=== PATIENT | male | born 1980 | race African-American/Black ===

== ENCOUNTER 2017-10-30 05:46 | Inpatient (IN) | payer OTHER ==
[2017-10-30] MEDS ORDERED: QUEtiapine TAB* 100 MG PO ONE (06:14)
[2017-10-30 06:32] LABS: ABS Basophils 0 10^3/ul (0-0.2); ABS Eosinophils 0.1 10^3/ul (0-0.6); ABS Lymphocytes 2.2 10^3/ul (1.0-4.8); ABS Monocytes 0.5 10^3/ul (0-0.8); ABS Neutrophils 2.8 10^3/ul (1.5-7.7); ABS Nucleated RBC 0 10^3/ul; Hematocrit 37 % (42-52); Hemoglobin 12.7 g/dl (14.0-18.0); Lymphocyte % 39.3 % (25-47); Mean Corpuscular HGB Conc 34 g/dl (31-36); Mean Corpuscular Hemoglobin 31 pg (27-31); Mean Corpuscular Volume 91 fL (80-94); Mean Platelet Volume 7.3 um3 (7.4-10.4); Nucleated Red Blood Cells % 0; Platelet Count 237 10^3/ul (150-450); Red Blood Count 4.09 10^6/ul (4.0-5.4); Red Cell Distribution Width 13 % (10.5-15); White Blood Count 5.6 10^3/ul (3.5-10.8)
[2017-10-30 06:50] LABS: EGFR Non-African American 75.4 (>60)
[2017-10-30] MEDS: Citalopram TAB* 40 MG PO SCH (07:51)
[2017-10-30] MEDS ORDERED: Nicotine GUM* 2 MG PO PRN (13:49)
[2017-10-30] MEDS ORDERED: Acetaminophen TAB* 325 MG PO PRN (13:49)
[2017-10-30] MEDS ORDERED: Nicotine Inhaler* 10 MG AMP INH PRN (13:49)
[2017-10-30] MEDS ORDERED: Al Hydrox/Mg Hydrox/Simet LIQ* 30 ML UDC PO PRN (13:49)
[2017-10-30] MEDS ORDERED: Mouth Piece, Nicotine* 1 EACH CARTRIDGE INH ONE (15:00)
[2017-10-30] MEDS: QUEtiapine TAB* 300 MG PO SCH (21:18)
[2017-10-30] MEDS: QUEtiapine TAB* 100 MG PO SCH (21:18)
[2017-10-31] MEDS: Citalopram TAB* 40 MG PO SCH ×2 (01:40→09:14)
[2017-10-31] MEDS: QUEtiapine TAB* 300 MG PO SCH (20:54)
[2017-10-31] MEDS: QUEtiapine TAB* 100 MG PO SCH (20:54)
--- NOTE | 2017-11-01 02:41 | HP ---
HISTORY AND PHYSICAL: DATE OF ADMISSION: 10/30/17 PROVIDER: Damaris Ortiz NP in Psychiatry. SUPERVISING PHYSICIAN: Dontrell Leone MD * (DICTATED BY DAMARIS ORTIZ NP ) JUSTIFICATION FOR ADMISSION: The patient is in need of 24-hour supervision and care secondary to suicidal ideation. CHIEF COMPLAINT: "I was not sleeping or eating and I am depressed." HISTORY OF PRESENT ILLNESS: The patient is a 37-year-old male who is partnered to a woman who has his child. He has a history of depression and drug abuse including cocaine and alcohol who arrives by walking in voluntarily and is here on a voluntary admission after having creeping suicidal ideation over 2 to 3 weeks. Terell says he is depressed. He has been in the hospital for an overnight so far and he states he is physically better now that he is back on his medications, which include Lexapro 20 mg and Seroquel at this point 400 mg. He says he was suicidal. He was off his meds for a while and all his past history came back including all of his depressions and unhappiness. He had a plan to overdose. He is thinking about going to inpatient rehab. He has a long history of depression, which started around age 19 and multiple suicide attempts in the past. He has an outpatient psychiatrist in [place] with the [facility], but he ran out of his medications few weeks ago. He reports having little sleep and poor appetite after running out of the medication and he continued using cocaine daily during that period. In the psychiatric unit so far, he reports better sleep and appetite after initiation of medications, but he still feels depressed and suicidal. He admits thoughts of hurting himself and states that "they are always there." He is hoping to be transferred to an inpatient rehab center for continuing care. He refused further questions due to a headache. He was sleeping less during his use of cocaine and is now sleeping more. He is distressed by his depression. He states that it has been historically ongoing. He is lying still in bed. He has not particularly gotten out of bed. He did get up to take his shower. It should be noted that these symptoms are in the setting of withdrawal from cocaine. He has declined to take a urine drug screen. PAST PSYCHIATRIC HISTORY: He has had several previous admissions in other locations that he declines to mention. He was also in at least one inpatient drug rehab center for a month. He was most recently in [place] where he was treated by taking Lexapro 20 mg and Seroquel 800 m mg in the morning, 200 mg in the afternoon and 400 mg at bedtime. He does not describe any other past psychiatric meds and is not open to talking about where he has been treated in the past. PAST MEDICAL HISTORY: He declined to comment on. FAMILY HISTORY: His mom had depression. SUBSTANCE ABUSE: He is using alcohol and cocaine. Again, he has declined a urine drug screen, so it is unclear exactly what he has been using. He states that he was in rehab before, but he was not focussed on getting well and he was not there for the right reasons. He states he was there for 28 days. In the multiple hospitalization department, he states they are for the "same reasons", but declines to go into any details. SOCIAL HISTORY: He had a sister, who has . She lived in [place]. He has a mom, who is living and is in [place]. Dad is in [place]. Their relationship is fine, he says, but he does not contact them. He left home at age 20 and has since lived in "lots of places," but he does not want to go into details. When pressed, he says that he has lived "all over." REVIEW OF SYSTEMS: The patient reports feeling fatigued. He denies shortness of breath, heat or cold intolerance, chest pain, or abdominal pain. He denies neurological symptoms. He denies fevers or changes in weight. PHYSICAL EXAMINATION VITAL SIGNS: His vital signs are within normal limits. For further exam and data, please see the emergency department records. MENTAL STATUS EXAM: This is an -Malagasy appearing possibly older than his stated age, although it is difficult to determine due to the fact that he will not get up out of bed. He remains lying down. He has short hair and appears to be reasonably well built. He is calm and superficially cooperative. His speech is in normal rate, tone, and volume although he is a bit terse. He appears to be dysthymic. His affect is constricted. His rate of thought seems to be normal. Thought content is clear. He is not homicidal at this time. He states he is having suicidal ideations and that those are always there. He is not having auditory or visual hallucinations. His insight into whether he has a mental illness is good. His judgment regarding how to get it treated is not good and will be considered fair. He is alert and oriented x3. He is a bit sleepy. His intelligence appears to be normal given his background and his vocabulary. LABORATORY DATA: He does have a reduced red blood cell count. We are going to screen for sickle cell. We have data from his A1c, which was approximately 4.6. His lipids were also within normal limits. DIAGNOSES: [place] I: Major depressive disorder, cocaine withdrawal. [place] II: Cluster B traits. IMPRESSION: This is a 37-year-old -Malagasy man, who is fairly clearly in a state of cocaine withdrawal, which is bringing on suicidal ideation as well as increased hunger and sleepiness. He in this setting is having increased suicidal thoughts and is considering going to an inpatient drug rehab. PLAN: The patient is admitted to the adult behavioral health unit and placed on 15- minute checks for his own safety. The patient is encouraged to participate in supportive milieu, individual, and group therapy. Estimated length of stay is 3 to 5 days. We will titrate medications to efficacy and monitor for mood and thought content. Discharge planning will include outpatient providers for psychiatry and drug treatment. DAMARIS ORTIZ, REAL [id number]/[facility]PS #: [id number] PITA
[2017-11-01 08:02] VITALS: BP 104/71
[2017-11-01] MEDS: Citalopram TAB* 40 MG PO SCH (11:00)
--- NOTE | 2017-11-02 13:45 | DS ---
DISCHARGE SUMMARY: DATE OF ADMISSION: 10/30/17 DATE OF DISCHARGE: 11/01/17 PROVIDER: Damaris Ortiz NP in Psychiatry. SUPERVISING PHYSICIAN: Dontrell Leone MD.* (DICTATED BY DAMARIS ORTIZ NP ) DIAGNOSIS: [place] I: Cocaine-induced depressive disorder. CONDITION AT THE TIME OF DISCHARGE: Psychiatrically cleared, stable. Did not participate in groups, was not social with peers, was agreeable to discharge. MENTAL STATUS EXAMINATION: At the time of discharge; Terell was calm, cooperative, made fair eye contact, alert and oriented x3. His grooming was good. His speech was normal paced. Thought processes are logical. He is not psychotic. He is not delusional. He denies auditory hallucinations, visual hallucinations, suicidal ideation and homicidal ideation. His insight and judgement are fair to good. He states he is willing to follow up and is urged to seek alcohol and drugs treatment. DISCHARGE INSTRUCTIONS TO THE PATIENT: A. Medications: Terell came in on Lexapro 20 mg and Seroquel a total of 800 mg. He was discharged on 20 mg of Lexapro and 400 mg of Seroquel. B. Diet: Regular. C. Activity: As tolerated. He is a smoker. We have referred him to the [facility] Smoker's Quit Line at [phone]. There are no studies pending at the time of discharge, all are available in the chart. FOLLOWUP CARE: Terell has been referred to the [facility] [place] and has an appointment there next week. SUBSTANCE ABUSE FOLLOWUP: As I said, he is referred to [facility] [place] for substance abuse treatment. There they can make the determination if he needs inpatient drug and alcohol rehab. HOSPITAL COURSE: The patient is a 37-year-old male who is partner to a woman who has his child. He has a history of depression and drug abuse including cocaine and alcohol who arrives by walking in voluntarily and is here on a voluntary admission after having creeping suicidal ideation over 2 to 3 weeks. Terell says he is depressed. He has been in the hospital for an overnight so far and states he is physically better now that he is back on his medications, which include Lexapro 20 mg and Seroquel at this point 400 mg. He says he was suicidal. He was off his meds for a while and all his past history came back including all his depressions and unhappiness. He had a plan to overdose. He was thinking about going to inpatient rehab. He has a long history of depression, which started around age 19 and multiple suicide attempts in the past. He has an outpatient psychiatrist in [place] with the [facility], but he ran out of medications a few weeks ago. He reports having little sleep and poor appetite as he continues using cocaine daily during that period. In the psychiatric unit, so far, he reports better sleep and appetite after initiation of medications but he still feels depressed and suicidal. He admits thoughts of hurting himself and states that they are always there. He is hoping to be transferred to an inpatient rehab center for continuing care. He refused further questions due to a head-ache. He was sleeping less during his use of cocaine and is now sleeping more. He was distressed by his depression. He states that it has historically been ongoing. He is lying still in bed. He has not particularly gotten out of bed. He did get up to take his shower. It should be noted that these symptoms are in the setting of withdrawal from cocaine. He has declined to take a urine screen. PSYCHIATRIC TREATMENT RENDERED: The patient was admitted to the adult behavioral unit and placed on 15-minute checks for safety. Terell was very relaxed on the unit spending most of the time in bed when he was not eating. The only med change that we made was to reduce his Seroquel from 800 to 400. He stated that he had bipolar disorder, but he was unable to interact with me for long enough to describe his symptoms without saying he was tired or he had a headache. He is on Seroquel. His HA1c is about 4.6. His lipids are within normal limits. There were no consults entered. He is improved in that he is no longer suicidal. He is referred out to outpatient rehab where they can determine whether he needs inpatient rehab and he was agreeable to that plan. DAMARIS ORTIZ, REAL [id number]/[facility] #: [id number] PITA
--- NOTE | 2017-11-10 14:39 | ED ---
Nimesh López Natalie, scribed for Nader Santana MD on 10/30/17 at 0622 . Psychiatric Complaint - HPI Summary HPI Summary: The patient is a 37 y/o M presenting to the ED c/o SI with gradual onset after not being on medications for a few weeks. He usually takes 800mg Seroquel and 20mg Lexapro, but ran out and thought he could do without them. He states that his depression is back and he's been thinking about suicide, "can't stop thinking about pills" in relation to a suicidal plan. Pt additionally c/o sleep loss. Pt denies CP, SOB, and abd pain. He has been previously hospitalized with the most recent time approximately two years ago. He drinks a few times a week and uses marijuana and cocaine, which were both used a few weeks ago, and is not currently under the influence of any drugs or alcohol. FHx of depression in mother and suicide in sister. - History Of Current Complaint Chief Complaint: EDMentalHealth Time Seen by Provider: 10/30/17 06:07 Hx Obtained From: Patient Onset/Duration: Gradual Onset, Lasting Days, Still Present Timing: Constant Severity Initially: Moderate Severity Currently: Moderate Character: Depressed Aggravating Factor(s): Medication Non-compliance Alleviating Factor(s): Nothing Associated Signs And Symptoms: Positive: Sleep Disturbance Related History: Positive For: Prior Psychiatric Issues - depression Has Suicidal: Reports: Thoughts, With A Plan - Allergies/Home Medications Allergies/Adverse Reactions: Allergies Allergy/AdvReac Type Severity Reaction Status Date / Time No Known Allergies Allergy Verified 10/30/17 05:51 Home Medications: Home Medications Escitalopram Oxalate [Lexapro 20 mg] 20 mg PO DAILY 10/30/17 [History Confirmed 10/30/17] Quetiapine Fumarate [Seroquel 400 MG] 800 mg PO 10/30/17 [History] PMH/Surg Hx/FS Hx/Imm Hx EENT History: Denies: Hx Deafness Psychiatric History: Reports: Hx Depression Infectious Disease History: No Infectious Disease History: Denies: Traveled Outside the [place] in Last 30 Days - Family History Known Family History: Positive: Other - depression in mother, suicide in sister - Social History Alcohol Use: Weekly Substance Use Type: Reports: Cocaine, Marijuana Substance Use Comment - Amount & Last Used: 2 weeks ago marijuana, 3 days ago cocaine Smoking Status (MU): Current Every Day Smoker Review of Systems Negative: Shortness Of Breath, Cough Negative: Abdominal Pain Neurological: Other - sleep loss Positive: Depressed, Other - SI All Other Systems Reviewed And Are Negative: Yes Physical Exam - Summary Physical Exam Summary: Appearance: Well appearing, no pain distress Skin: warm, dry, reflects adequate perfusion Head/face: normal Eyes: EOMI, ALMA ENT: normal Neck: supple, non-tender Respiratory: CTA, breath sounds present Cardiovascular: RRR, pulses symmetrical Abdomen: non-tender, soft Bowel Sounds: present Musculoskeletal: normal, strength/ROM intact Neuro: normal, sensory motor intact, A&Ox3 Psych: states suicidal thoughts with possible plan of using pills Triage Information Reviewed: Yes Vital Signs On Initial Exam: Initial Vitals Temp Pulse Resp BP Pulse Ox 97.7 F 85 16 136/80 97 10/30/17 05:48 10/30/17 05:48 10/30/17 05:48 10/30/17 05:48 10/30/17 05:48 Vital Signs Reviewed: Yes Diagnostics - Vital Signs Vital Signs Temp Pulse Resp BP Pulse Ox 10/30/17 05:48 97.7 F 85 16 136/80 97 - Laboratory Lab Statement: Any lab studies that have been ordered have been reviewed, and results considered in the medical decision making process. Course/Dx - Differential Dx/Clinical Impression Provider Diagnosis: Major depression, recurrent, Non compliance w medication regimen Discharge - Sign-Out/Discharge Documenting (check all that apply): Sign-Out Patient Signing out patient TO: Keiry Castillo - The pt will be a sign-out to Dr. Castillo at shift change pending MHE. - Discharge Plan Referrals: Brenna Stephenson MD [Primary Care Provider] - The documentation as recorded by the Nimesh hartman Natalie accurately reflects the service I personally performed and the decisions made by fl, Nader Santana MD.
--- NOTE | 2017-11-11 13:46 | UC ---
- Progress Note Progress Note: Pt received in sign out from Dr. Santana at 7am pt awaiting lorraine No concerned during my shift Pt signed out Dr. Anaya 10am awaiting mental health dispo - Consult/PCP Time Called: 06:55 Course/Dx - Diagnoses Provider Diagnoses: Major depression, recurrent, Non compliance w medication regimen Discharge - Sign-Out/Discharge Documenting (check all that apply): Sign-Out Patient, Receiving Sign-Out Signing out patient TO: Brendon Anaya Receiving patient FROM: Nader Santana - Discharge Plan Condition: Stable Disposition: ADMITTED TO [facility] - Billing Disposition and Condition Condition: STABLE Disposition: Admitted to [facility]
== END 2017-11-01 11:20 | disposition home or self-care (01) | DRG 774 ==
LOC: ED 05:46 → BSU 13:57
PROVIDERS: ADMIT Psychiatry & Neurology Psychiatry; ATTEND Psychiatry & Neurology Psychiatry
DX: F14.14 Cocaine abuse with cocaine-induced mood disorder (principal); R45.851 Suicidal ideations; F10.10 Alcohol abuse, uncomplicated; F17.200 Nicotine dependence, unspecified, uncomplicated; Y90.9 Presence of alcohol in blood, level not specified; Z81.8 Family history of other mental and behavioral disorders
CPT/HCPCS: 36415; 80053; 80061; 80320; 80329; 83036; 84443; 85025; 85660; 99222; 99238; 99284; A9270-GY; G0480